=== PATIENT | female | born 1980 | race Two or more races ===

== ENCOUNTER → 2025-01-05 | Outpatient (CLI) | payer MEDICAID, SELFPAY ==
--- NOTE | 2025-01-05 14:48 | XR_ITS ---
Examination: Wrist, left 3 views Technique: Wrist AP, oblique, lateral 3 views Date and time of exam: January 05, 2025 1459 hours INDICATIONS: Wrist pain one month. FINDINGS: No fracture or dislocation Early osteoarthritis first carpometacarpal joint IMPRESSION: Early osteoarthritis first carpometacarpal joint
--- NOTE | 2025-01-05 14:48 | XR_ITS ---
Examination: Hand, left 3 views Technique: Hand AP, oblique, lateral 3 views Date and time of exam: January 05, 2025 1451 hours INDICATIONS: Injury to the hand December 06, 2024 with finger pain. FINDINGS: Flexion deformity at the proximal interphalangeal joint fifth digit No acute fracture No dislocation No foreign body IMPRESSION: No fracture or dislocation
== END | disposition home or self-care (01) ==
LOC: CDIM 14:36
PROVIDERS: PCP Nurse Practitioner Gerontology; Referring Provider Nurse Practitioner Gerontology; Visit Provider Nurse Practitioner Gerontology
DX: M18.12 Unilateral primary osteoarthritis of first carpometacarpal joint, left hand (principal)
CPT/HCPCS: 73110; 73130